=== PATIENT | female | born 1950 | race Caucasian/White ===

== ENCOUNTER 2021-06-28 06:24 | Day surgery (SDC) | payer MEDICARE ==
[2021-06-28] MEDS ORDERED: Propofol 200 MG/20 ML SDV ONE (07:10)
[2021-06-28] MEDS ORDERED: fentaNYL 100 MCG/2 ML SDV ONE (07:10)
[2021-06-28] MEDS ORDERED: Midazolam 1 MG/ML 2 ML SDV ONE (07:10)
[2021-06-28] MEDS: Sodium Chloride 0.9% 1,000 ML IV SCH (07:12)
== END 2021-06-28 09:25 | disposition home or self-care (01) ==
LOC: JP.SDS 06:24
PROVIDERS: ATTEND Surgery
DX: Z12.11 Encounter for screening for malignant neoplasm of colon (principal); D12.2 Benign neoplasm of ascending colon; I10 Essential (primary) hypertension; E11.9 Type 2 diabetes mellitus without complications
CPT/HCPCS: 45380; J2250; J2704; J3010; J7030

== ENCOUNTER 2022-10-27 07:47 | Day surgery (SDC) | payer MEDICARE ==
[~2022-10-27 07:47] MED LIST: Bupivacaine 0.5%/EPINEPHrine 1:200,000 50 ML MDV ONE; Lidocaine 1% with EPINEPHrine 1:100,000 50 ML MDV ONE
[2022-10-27] MEDS ORDERED: Sodium Chloride 0.9% 1,000 ML IV SCH (08:30)
[2022-10-27] MEDS ORDERED: Propofol 200 MG/20 ML SDV ONE ×2 (09:10→10:14)
[2022-10-27] MEDS ORDERED: fentaNYL 100 MCG/2 ML SDV ONE (09:10)
[2022-10-27] MEDS ORDERED: Midazolam 1 MG/ML 2 ML SDV ONE (09:10)
[2022-10-27] MEDS ORDERED: Lidocaine 1% w/EPINEPHrine 50 ML, Sodium Bicarbonate 5 MEQ in Sodium Chloride 0.9% 950 ML INJECT ONE (09:15)
== END 2022-10-27 11:57 | disposition home or self-care (01) ==
LOC: JP.SDS 07:47
PROVIDERS: ATTEND Surgery
DX: I87.2 Venous insufficiency (chronic) (peripheral) (principal); I83.813 Varicose veins of bilateral lower extremities with pain; E11.9 Type 2 diabetes mellitus without complications; I10 Essential (primary) hypertension; E78.5 Hyperlipidemia, unspecified; M54.9 Dorsalgia, unspecified; G89.29 Other chronic pain; M79.7 Fibromyalgia; Z79.82 Long term (current) use of aspirin; Z79.899 Other long term (current) drug therapy; Z88.8 Allergy status to other drugs, medicaments and biological substances; Z79.1 Long term (current) use of non-steroidal anti-inflammatories (NSAID)
CPT/HCPCS: 36475; J1642; J2250; J2704; J3010; J7030; J3490

== ENCOUNTER 2024-07-17 08:03 | Day surgery (SDC) | payer MEDICARE ==
[2024-07-17] MEDS ORDERED: Propofol 200 MG/20 ML SDV ONE (08:34)
[2024-07-17] MEDS ORDERED: fentaNYL 100 MCG/2 ML SDV ONE (08:34)
[2024-07-17] MEDS: Lactated Ringers 1,000 ML IV SCH (08:41)
== END 2024-07-17 11:10 | disposition home or self-care (01) ==
LOC: JP.SDS 08:03
PROVIDERS: ATTEND Surgery
DX: Z12.11 Encounter for screening for malignant neoplasm of colon (principal); I10 Essential (primary) hypertension; E11.9 Type 2 diabetes mellitus without complications; E66.9 Obesity, unspecified; Z80.0 Family history of malignant neoplasm of digestive organs
CPT/HCPCS: G0105; J2704; J3010; J7120